=== PATIENT | male | born 1975 | race African-American/Black ===

== ENCOUNTER 2020-08-25 11:54 | Inpatient (IN) | payer OTHER ==
[2020-08-25 13:46] VITALS: BMI 18.3
[2020-08-25] MEDS ORDERED: MAG HYDROX/AL HYDROX/SIMETH 30 ML UNIT-DOSE CUP PO PRN (14:53)
[2020-08-25] MEDS ORDERED: BISMUTH SUBSALICYLATE 262 MG/15 ML BTL PO PRN (14:53)
[2020-08-25] MEDS ORDERED: MENTHOL/PHENOL 1 EACH UD MM PRN (14:53)
[2020-08-25] MEDS ORDERED: MAGNESIUM HYDROX 2400MG/30ML ORAL SUSPENSION 30 ML CUP PO PRN (14:53)
[2020-08-25] MEDS ORDERED: METHOCARBAMOL 500 MG TABLET PO PRN (14:53)
[2020-08-25] MEDS ORDERED: ACETAMINOPHEN 325 MG TABLET (FP) PO PRN ×2 (14:53)
[2020-08-25] MEDS ORDERED: IBUPROFEN 400 MG TABLET (FP) PO PRN (14:53)
[2020-08-25] MEDS ORDERED: MAGNESIUM CITRATE 300 ML BOTTLE PO PRN (14:53)
[2020-08-25] MEDS ORDERED: ONDANSETRON *ODT* 4 MG TABLET SL PRN (14:53)
[2020-08-25] MEDS ORDERED: NICOTINE POLACRILEX 2 MG GUM BUC PRN (14:53)
[2020-08-25] MEDS: hydrOXYzine PAMOATE 25 MG CAPSULE (FP) PO SCH ×2 (18:02→22:23)
[2020-08-25] MEDS: NICOTINE 21 MG/24 HOURS TOPICAL PATCH TD SCH (18:03)
[2020-08-25] MEDS: PRENATAL VITAMINS W/ FOLIC ACID TABLET (FP) PO SCH (18:03)
[2020-08-25] MEDS ORDERED: MELATONIN 5 MG TABLETS PO SCH (22:00)
[2020-08-25] MEDS: THIAMINE HCL 100 MG TABLET (FP) PO SCH (22:23)
[2020-08-26] MEDS: hydrOXYzine PAMOATE 25 MG CAPSULE (FP) PO SCH ×5 (07:10→21:56)
[2020-08-26] MEDS: NICOTINE 21 MG/24 HOURS TOPICAL PATCH TD SCH (10:39)
[2020-08-26] MEDS: PRENATAL VITAMINS W/ FOLIC ACID TABLET (FP) PO SCH (10:39)
[2020-08-26 11:44] LABS: ALBUMIN 4.1 g/dl (3.4-5.0); CALCIUM 9.9 mg/dL (8.5-10.1)
[2020-08-26 11:47] LABS: CREATININE 1.1 mg/dL (0.55-1.3)
[2020-08-26 11:50] LABS: BILIRUBIN,TOTAL 1.4 mg/dL (0.2-1)
[2020-08-26 12:20] LABS: HIV INTERPRETATION NEGATIVE (NEGATIVE)
[2020-08-26] MEDS: THIAMINE HCL 100 MG TABLET (FP) PO SCH (21:56)
[2020-08-26] MEDS: MIRTAZAPINE 15 MG TABLET (FP) PO SCH (21:56)
[2020-08-27] MEDS: hydrOXYzine PAMOATE 25 MG CAPSULE (FP) PO SCH ×5 (07:26→22:34)
[2020-08-27] MEDS: PRENATAL VITAMINS W/ FOLIC ACID TABLET (FP) PO SCH (10:01)
[2020-08-27] MEDS: NICOTINE 21 MG/24 HOURS TOPICAL PATCH TD SCH (10:02)
[2020-08-27] MEDS: THIAMINE HCL 100 MG TABLET (FP) PO SCH (22:34)
[2020-08-27] MEDS: MIRTAZAPINE 15 MG TABLET (FP) PO SCH (22:34)
[2020-08-28] MEDS: hydrOXYzine PAMOATE 25 MG CAPSULE (FP) PO SCH ×2 (05:58→09:11)
[2020-08-28 08:41] VITALS: BP 117/77; PULSE 84; TEMP 98.1
[2020-08-28] MEDS: PRENATAL VITAMINS W/ FOLIC ACID TABLET (FP) PO SCH (09:11)
[2020-08-28] MEDS: NICOTINE 21 MG/24 HOURS TOPICAL PATCH TD SCH (09:11)
[2020-08-28 10:17] LABS: EOS % 2.7 % (0-4.5); HEMATOCRIT 42.9 % (35.4-49); HEMOGLOBIN 14.9 GM/dL (11.7-16.9); LYMPH % 38.9 % (8-40); MCH 37.3 pg (25.7-33.7); MCHC 34.6 g/dl (32.0-35.9); MEAN CELL VOLUME 107.8 fl (80-96); MEAN PLT VOLUME 6.4 fl (7.5-11.1); MONO % 15.2 % (3.8-10.2); NEUT % 42.2 % (42.8-82.8); PLATELET COUNT 328 K/MM3 (134-434); RBC 3.98 M/mm3 (4.00-5.60); RDW 12.4 % (11.9-15.9)
== END 2020-08-28 12:56 | disposition home or self-care (01) | DRG 774 ==
LOC: YASAS 11:54 → Y3N 15:18 → UNDOADMIN 15:18
PROVIDERS: ADMIT Allergy & Immunology; ATTEND Allergy & Immunology
PROC: HZ2ZZZZ Detoxification Services for Substance Abuse Treatment (ICD-10-PCS; principal; 2020-08-25)
DX: F10.230 Alcohol dependence with withdrawal, uncomplicated (principal); F14.20 Cocaine dependence, uncomplicated; F12.20 Cannabis dependence, uncomplicated; F17.210 Nicotine dependence, cigarettes, uncomplicated; F32.9 Major depressive disorder, single episode, unspecified; Z62.810 Personal history of physical and sexual abuse in childhood; Z91.410 Personal history of adult physical and sexual abuse; Z98.890 Other specified postprocedural states
CPT/HCPCS: 36415; 80053; 85025; 86780; 87389; C9803; U0003; U0005